=== PATIENT | female | born 1960 | race Caucasian/White ===

== ENCOUNTER 2024-05-14 10:05 | Outpatient (RCR) | payer MEDICARE, SELFPAY ==
[2024-05-14 11:12] LABS: Basophils % (Auto) 1 % (0-2.5); Eosinophils # (Auto) 0.1 Thou/mm3 (0.0-0.5); Eosinophils % (Auto) 2 % (0-10); Hematocrit 41.6 % (36.0-46.0); Hemoglobin 13.9 g/dL (12.0-16.0); Immature Granulocytes % (Auto) 0 % (0-0); Immature Granulocytes Auto 0.02 Thou/mm3 (0.00-0.00); Lymphocytes # (Auto) 1.2 Thou/mm3 (1.0-4.8); Lymphocytes % (Auto) 22 % (10-50); Mean Corpuscular HGB Conc 33.4 g/dl (31.0-37.0); Mean Corpuscular Hemoglobin 30.7 pg (25.0-35.0); Mean Corpuscular Volume 92 fL (80-100); Monocytes # (Auto) 0.5 Thou/mm3 (0.0-0.8); Monocytes % (Auto) 9 % (0-12); Neutrophils # (Auto) 3.8 Thou/mm3 (1.8-7.7); Neutrophils % (Auto) 66 % (37-80); Nucleated Red Blood Cell % 0 /100 WBC (0); Platelet Count 227 Thou/mm3 (140-440); RDW Standard Deviation 45.8 fL (36.4-46.3); Red Blood Count 4.53 Miln/mm3 (4.00-5.20); White Blood Count 5.7 Thou/mm3 (3.6-11.0)
[2024-05-14 11:33] LABS: Carcinoembryonic Antigen 2.2 ng/mL (0.0-5.0)
[2024-05-14 11:54] LABS: Alanine Aminotransferase 14 U/L (10-49); Albumin, Serum 4.3 gm/dL (3.4-4.8); Albumin/Globulin Ratio 1.8 (1.2-2.2); Alkaline Phosphatase 99 U/L (46-116); Anion Gap 7 (7-16); BUN/Creatinine Ratio 15 Ratio (12-20); Bilirubin,Total 0.3 mg/dL (0.3-1.2); Blood Urea Nitrogen 15 mg/dL (9-23); Carbon Dioxide 24.6 mMol/L (20.0-31.0); Chloride 110 mMol/L (98-107); Globulin 2.4 gm/dL (2.3-3.5); Glucose 109 mg/dL (74-106); Osmolality,Calculated 284 (275-295); Potassium 3.6 mMol/L (3.4-5.1); Sodium 142 mMol/L (136-145); Total Protein 6.7 gm/dL (5.7-8.2); eGFR > 60 See Note
[2024-05-14 12:49] LABS: Aspartate Amino Transferase < 8 U/L (0-34)
== END 2024-06-11 23:59 | disposition home or self-care (01) ==
LOC: SCTC 10:05
PROVIDERS: PCP Internal Medicine; Referring Provider Internal Medicine; Visit Provider Internal Medicine Hematology & Oncology
DX: C20 Malignant neoplasm of rectum (principal)
CPT/HCPCS: 36591; 80053; 82378; 85025; A4216; J1642

== ENCOUNTER 2024-07-28 14:52 | Outpatient (RCR) | payer MEDICARE, SELFPAY ==
[2024-07-27 15:33] LABS: Basophils % (Auto) 1 % (0-2.5); Eosinophils # (Auto) 0.1 Thou/mm3 (0.0-0.5); Eosinophils % (Auto) 1 % (0-10); Hematocrit 42.2 % (36.0-46.0); Hemoglobin 14.3 g/dL (12.0-16.0); Immature Granulocytes % (Auto) 0 % (0-0); Immature Granulocytes Auto 0.02 Thou/mm3 (0.00-0.00); Lymphocytes # (Auto) 1.5 Thou/mm3 (1.0-4.8); Lymphocytes % (Auto) 25 % (10-50); Mean Corpuscular HGB Conc 33.9 g/dl (31.0-37.0); Mean Corpuscular Hemoglobin 30.5 pg (25.0-35.0); Mean Corpuscular Volume 90 fL (80-100); Monocytes # (Auto) 0.5 Thou/mm3 (0.0-0.8); Monocytes % (Auto) 8 % (0-12); Neutrophils # (Auto) 4.1 Thou/mm3 (1.8-7.7); Neutrophils % (Auto) 66 % (37-80); Nucleated Red Blood Cell % 0 /100 WBC (0); Platelet Count 205 Thou/mm3 (140-440); Red Blood Count 4.69 Miln/mm3 (4.00-5.20); White Blood Count 6.2 Thou/mm3 (3.6-11.0)
[2024-07-27 15:57] LABS: Alanine Aminotransferase 24 U/L (10-49); Albumin, Serum 4.2 gm/dL (3.4-4.8); Albumin/Globulin Ratio 1.6 (1.2-2.2); Alkaline Phosphatase 96 U/L (46-116); Anion Gap 6 (7-16); Aspartate Amino Transferase 22 U/L (0-34); BUN/Creatinine Ratio 12 Ratio (12-20); Bilirubin,Total 0.6 mg/dL (0.3-1.2); Blood Urea Nitrogen 12 mg/dL (9-23); Calcium 8.9 mg/dL (8.3-10.6); Calcium (Corrected) 8.9 mg/dL (8.5-10.1); Carbon Dioxide 27.6 mMol/L (20.0-31.0); Chloride 105 mMol/L (98-107); Globulin 2.6 gm/dL (2.3-3.5); Glucose 109 mg/dL (74-106); Osmolality,Calculated 278 (275-295); Potassium 3.9 mMol/L (3.4-5.1); Sodium 139 mMol/L (136-145); Total Protein 6.8 gm/dL (5.7-8.2); eGFR > 60 See Note
[2024-07-27 15:59] LABS: Carcinoembryonic Antigen 2.1 ng/mL (0.0-5.0)
--- NOTE | 2024-08-16 00:59 | CTCFLWUP_ITS ---
Patient: SIMONE JEFFRIES : 1960 Page 5 of 7 FOLLOW UP NOTE DATE OF SERVICE: 07/28/2024 NAME: SIMONE JEFFRIES ACCOUNT: [id number] : 1960 AGE: 64 INTERVAL HISTORY: No new complaints ONCOLOGY HISTORY: DIAGNOSIS: Stage IIb rectal adenocarcinoma (09/04/2017). S/p APR (09/04/2017) Post chemoradiation (12/15/2017 - 01/22/2018) S/p 8 doses of modified FOLFOX 6 (03/04/2018 - 06/23/2018) Ms. Jeffries smokes 3 packs of cigarettes per day. Has been smoking for a long time. REASON FOR TODAY?S VISIT: This is office follow-up visit. Ms. Jeffries is here at [facility]. She is clinically doing well. Denies any new complaints. Denies any cough, chest pain, abdominal pain or leg cramps. She denies any neck pain. Since last visit she had CT scan of the neck as well as ultrasound of the neck. The results are documented below. She has good appetite and good energy levels. Continues to smoke cigarettes in spite of multiple recommendation. Smoking. Malignant neoplasm of rectum [ICD10] C20 DATE OF DIAGNOSIS: STAGE/TNM: TREATMENT HISTORY: Care?Plan Start?Date Cycle Day Intent 5FU?225?mg/m*2/day 12/15/2017 1 7 Curative?(adjuvant) Iqazuj-hUITYGA-5?-?5FU?400?+?2400?CIV,?LVR?400,?OXALIplat?85 03/04/2018 2 14 Curative?(adjuvant) HISTORY OF PRESENT ILLNESS: Simone Jeffries is a 64-year-old female with following history. 08/07/2017: Colonoscopy was done due to a history of for rectal bleeding. A mass was found in the rectum and biopsies were taken. Pathology showed moderately differentiated adenocarcinoma. 09/04/2017: Dr. Melvin West performed abdominal peritoneal resection with permanent colostomy, bilateral salpingo- oophorectomy, exclusion of pelvis with mesh, posterior partial vaginectomy and incidental appendectomy. Surgical pathology specimen showed a 8 x 7.5 x 2 cm moderately differentiated adenocarcinoma located in the distal rectum with tumor penetrating the muscularis propria and involved the perimuscular fibrous tissue and the outer vaginal wall. No lymphovascular or perineural invasion was identified. 19 lymph nodes were negative for metastatic disease. It was staged as a PT 4, PN 0 disease. 11/25/2017: CT scan of the chest with IV contrast was done which showed 3 mm noncalcified pulmonary nodule in the right lower lobe as well as a 5 mm noncalcified pulmonary nodule in the superior segment of the right lower lobe. 12/15/2017-01/22/2018: Patient received 5040 cGy of radiation therapy along with 5- FU as a radiosensitizing agent. 03/04/2018? 06/23/2018: Patient received 8 doses of modified FOLFOX. 09/21/2018: Patient had CT scan of the chest abdomen pelvis with contrast which showedStable 5 mm, 3 mm pulmonary nodules right lower lobe compared to CT chest study November 25, 2017. No interval mediastinal adenopathy. No interval pulmonary nodules. No interval hepatic lesions. Presumed postoperative change in the rectal region Presacral ill-defined density which could represent scar formation although recurrent tumor cannot be excluded. 10/23/2018: PET CT scan?The right lower lobe pulmonary nodules, 5 mm, [address] chest September 21, 2018 are not appreciated on the current lower resolution CT chest study No new pulmonary nodules No interval metastatic disease 11/02/2019: AST 147, ALT 227. CEA 1.0. 01/24/2020: Patient was seen in the emergency room because of diffuse abdominal pain. 01/24/2020: CT scan of the abdomen and pelvis with IV contrast? 01/24/2020: AST 35, ALT 36, T bili 0.6. 02/07/2020: CT scan of the chest without contrast? 03/16/2020: MRI of the pelvis with and without contrast? 04/24/2020: Ultrasound-guided biopsies of the right and left anal masses? 05/26/2020: PET CT scan? 06/17/2020: MRI of the abdomen with IV contrast? 11/22/2020: Patient had left abdominal wall hernia repaired by Dr. West. 09/24/2022: CEA 1.8. 10/02/2023: PET/CT scan? 10/10/2023: CT scan of the abdomen and pelvis with IV contrast 11/04/2023: CT scan of the neck with IV contrast 11/10/2023: Ultrasound of soft tissue of neck OTHER MEDICAL HISTORY/CONDITIONS: FAMILY HISTORY: SOCIAL HISTORY: MARKET ANALYST HISTORY: MEDICATIONS: 1. escitalopram oxalate - 5 mg 1 tab Every day before sleep 2. Imodium A-D - 2 mg 2 tab Twice a Day 3. losartan - 25 mg 1 tab Daily 4. trazodone - Daily Medications Last Reconciled by Charito Khan MA on 07/28/2024 ALLERGIES: No Known Drug Allergies REVIEW OF SYSTEMS: A complete 14-point review of systems was performed and is negative except as noted in interval history. PHYSICAL EXAMINATION: VITAL SIGNS: Temperature?98, B/P?140/80, Oxygen?Saturation?96% Weight?196?lbs (Change?since?07/27/24:?0?lbs) PAIN: 0 - No pain GENERAL APPEARANCE: Appears well, in no apparent distress, appropriately interactive. HEENT: Normocephalic, no temporal wasting, normal conjunctiva, no scleral icterus, normal hearing, lips without lesions, neck normal range of motion. CARDIOVASCULAR: Not assessed. PULMONARY: Normal respiratory effort, no respiratory distress or use of accessory muscles, speaking in full sentences, no tachypnea. EXTREMITIES: No pedal edema or cyanosis. SKIN: Normal skin appearance. NEUROLOGIC: Alert and oriented x4. PSHYCHIATRIC: Appropriate affect, mood normal, behavior normal, intact thought and speech. LABORATORY DATA: I have personally reviewed and interpreted each of the patient?s relevant lab tests, abnormal findings are below: Date 05/14/24 07/27/24 ??WHITE?BLOOD?COUNT?(Thou/mm3) 5.7 6.2 ??RED?BLOOD?COUNT?(Miln/mm3) 4.53 4.69 ??HEMOGLOBIN?(gm/dl) 13.9 14.3 ??HEMATOCRIT?(%) 41.6 42.2 ??PLATELET?COUNT?(Thou/mm3) 227 205 ??NEUTROPHILS?%,?AUTO?(%) 66 66 ??LYMPH?%,?AUTO?(%) 22 25 ??NEUTROPHILS,?AUTO?(Thou/mm3) 3.8 4.1 ??GLUCOSE,RANDOM?(mg/dL) ? 109?H ??BLOOD?UREA?NITROGEN?(mg/dL) ? 12 ??CREATININE?(mg/dL) ? 1.00 ??SODIUM?(mmol/L) ? 139 ??POTASSIUM?(mmol/L) ? 3.9 ??CHLORIDE?(mmol/L) ? 105 ??CrCl?(CandG)?(ml/min) ? 77.67 ??AST/SGOT?(Unit/L) ? 22 ??ALT/SGPT?(Unit/L) ? 24 ??ALKALINE?PHOSPHATASE?(Unit/L) ? 96 ??BILIRUBIN,?TOTAL?(mg/dL) ? 0.6 ??PROTEIN?TOTAL?(gm/dl) ? 6.8 ??ALBUMIN,?SERUM?(gm/dl) ? 4.2 ??GLOBULIN?(gm/dl) ? 2.6 ??ALBUMIN/GLOBULIN?RATIO ? 1.6 ??CALCIUM,?SERUM?(mg/dL) ? 8.9 ??CALCIUM?SERUM?(CORRECTED)?(mg/dL) ? 8.9 ??CEA?(O*)?(ng/ml) ? 2.1 ASSESSMENT/PLAN: Ultrasound of the neck as well as CT scans of the neck did not show any mass lesions. The left-sided neck swelling has subsided. Stage IIb rectal adenocarcinoma (09/04/2017). S/p APR (09/04/2017) Post chemoradiation (12/15/2017 - 01/22/2018) S/p 8 doses of modified FOLFOX 6 (03/04/2018 - 06/23/2018) Peripheral neuropathy better. Patient continues to smoke 1/2 packs of cigarettes per day. CT scan of the neck with contrast as well as ultrasound of the left side of the neck. No evidence of recurrence of her rectal cancer. I will see her back in clinic in 6 months with labs drawn prior to the visit.. ORDERS: Order # Description [id number] Comprehensive Metabolic Panel - 12 + CBC with Auto Diff [id number] Follow Up 3 Months RETURN TO CLINIC: 3 months BILLING AND COMPLIANCE: I reviewed external records from providers outside my specialty as summarized above. I spent a total of 50 minutes on this patient?s care on the day of their visit excluding time spent related to any billed procedures. This time includes time spent with the patient as well as time spent documenting in the medical record, reviewing patients records and tests, obtaining history, placing orders, communicating with other healthcare professionals, counseling the patient, family or caregiver, and/or care coordination for the diagnoses above. Electronically Signed by: Geovani Kahn MD T: 12:57 AM CC: Missy,? PCP: Chico Haley Referring: Chico Haley This document was completed utilizing speech recognition software. Grammatical errors, random word insertions, pronoun errors, and incomplete sentences are an occasional consequence of this system due to software limitations, ambient noise, and hardware issues. Any formal questions or concerns about the content, text or information contained within the body of this dictation should be directly addressed to the provider for clarification.
== END 2024-08-09 23:59 | disposition home or self-care (01) ==
LOC: SCTC 14:52
PROVIDERS: PCP Internal Medicine; Referring Provider Internal Medicine; Visit Provider Internal Medicine Hematology & Oncology
DX: Z08 Encounter for follow-up examination after completed treatment for malignant neoplasm (principal); Z85.048 Personal history of other malignant neoplasm of rectum, rectosigmoid junction, and anus; Z92.3 Personal history of irradiation; Z92.21 Personal history of antineoplastic chemotherapy; F17.210 Nicotine dependence, cigarettes, uncomplicated; G62.9 Polyneuropathy, unspecified
CPT/HCPCS: 36591; 80053; 82378; 85025; 99212; A4216; J1642; G0463

== ENCOUNTER 2024-09-09 08:26 | Outpatient (RCR) | payer MEDICARE, BC, SELFPAY | END 2024-10-09 23:59 | disposition home or self-care (01) | LOC: SCTC 08:26 | PROVIDERS: PCP Internal Medicine; Referring Provider Internal Medicine; Visit Provider Internal Medicine Hematology & Oncology | DX: Z08 Encounter for follow-up examination after completed treatment for malignant neoplasm (principal); Z85.048 Personal history of other malignant neoplasm of rectum, rectosigmoid junction, and anus; F17.210 Nicotine dependence, cigarettes, uncomplicated; Z92.3 Personal history of irradiation; Z92.21 Personal history of antineoplastic chemotherapy | CPT/HCPCS: 36591; A4216; J1642 ==

== ENCOUNTER 2024-10-27 10:54 | Outpatient (RCR) | payer MEDICARE, BC, SELFPAY ==
[2024-10-26 11:44] LABS: Basophils # (Auto) 0.1 Thou/mm3 (0.0-0.2); Basophils % (Auto) 1 % (0-2.5); Eosinophils # (Auto) 0.1 Thou/mm3 (0.0-0.5); Eosinophils % (Auto) 2 % (0-10); Hematocrit 39.8 % (36.0-46.0); Hemoglobin 13.7 g/dL (12.0-16.0); Immature Granulocytes % (Auto) 0 % (0-0); Immature Granulocytes Auto 0.02 Thou/mm3 (0.00-0.00); Lymphocytes # (Auto) 1.3 Thou/mm3 (1.0-4.8); Lymphocytes % (Auto) 23 % (10-50); Mean Corpuscular HGB Conc 34.4 g/dl (31.0-37.0); Mean Corpuscular Hemoglobin 31.7 pg (25.0-35.0); Mean Corpuscular Volume 92 fL (80-100); Monocytes # (Auto) 0.5 Thou/mm3 (0.0-0.8); Monocytes % (Auto) 9 % (0-12); Neutrophils # (Auto) 3.7 Thou/mm3 (1.8-7.7); Neutrophils % (Auto) 65 % (37-80); Nucleated Red Blood Cell % 0 /100 WBC (0); Platelet Count 194 Thou/mm3 (140-440); RDW Standard Deviation 49.1 fL (36.4-46.3); Red Blood Count 4.32 Miln/mm3 (4.00-5.20); White Blood Count 5.7 Thou/mm3 (3.6-11.0)
[2024-10-26 12:04] LABS: Alanine Aminotransferase 19 U/L (10-49); Albumin, Serum 3.9 gm/dL (3.4-4.8); Albumin/Globulin Ratio 1.7 (1.2-2.2); Alkaline Phosphatase 77 U/L (46-116); Anion Gap 7 (7-16); Aspartate Amino Transferase 22 U/L (0-34); BUN/Creatinine Ratio 13 Ratio (12-20); Bilirubin,Total 0.3 mg/dL (0.3-1.2); Blood Urea Nitrogen 13 mg/dL (9-23); Calcium 8.8 mg/dL (8.3-10.6); Calcium (Corrected) 8.9 mg/dL (8.5-10.1); Carbon Dioxide 26.6 mMol/L (20.0-31.0); Chloride 108 mMol/L (98-107); Globulin 2.3 gm/dL (2.3-3.5); Glucose 96 mg/dL (74-106); Osmolality,Calculated 283 (275-295); Potassium 4.3 mMol/L (3.4-5.1); Sodium 142 mMol/L (136-145); Total Protein 6.2 gm/dL (5.7-8.2); eGFR > 60 See Note
[2024-10-26 12:06] LABS: Carcinoembryonic Antigen 2.1 ng/mL (0.0-5.0)
--- NOTE | 2024-11-01 01:46 | CTCFLWUP_ITS ---
Patient: SIMONE JEFFRIES : 1960 Page 5 of 7 FOLLOW UP NOTE DATE OF SERVICE: 10/27/2024 NAME: SIMONE JEFFRIES ACCOUNT: [id number] : 1960 AGE: 64 INTERVAL HISTORY: Simone, a female patient with history of colon cancer concern, presented for genetic test follow-up and evaluation of a scalp bump. She smokes 2 packs daily and worries about lung cancer. Examination revealed a small scalp lesion with dry skin and dandruff. [facility] genetic testing for colon cancer was negative. Management included ordering a chest CT scan for lung cancer screening, smoking cessation counseling, and recommendations for scalp care including moisturizing and using Head and Shoulders shampoo. ONCOLOGY HISTORY: DIAGNOSIS: Stage IIb rectal adenocarcinoma (09/04/2017). S/p APR (09/04/2017) Post chemoradiation (12/15/2017 - 01/22/2018) S/p 8 doses of modified FOLFOX 6 (03/04/2018 - 06/23/2018) Ms. Jeffries smokes 3 packs of cigarettes per day. Has been smoking for a long time. REASON FOR TODAY?S VISIT: This is office follow-up visit. Ms. Jeffries is here at [facility]. She is clinically doing well. Denies any new complaints. Denies any cough, chest pain, abdominal pain or leg cramps. She denies any neck pain. Since last visit she had CT scan of the neck as well as ultrasound of the neck. The results are documented below. She has good appetite and good energy levels. Continues to smoke cigarettes in spite of multiple recommendation. Smoking. Malignant neoplasm of rectum [ICD10] C20 DATE OF DIAGNOSIS: 08/07/2017 STAGE/TNM: Stage IIb T4 N0 M0 Moderately differentiated adenocarcinoma of the distal rectum TREATMENT HISTORY: Care?Plan Start?Date Cycle Day Intent 5FU?225?mg/m*2/day 12/15/2017 1 7 Curative?(adjuvant) Cnkowd-cMNXXYX-5?-?5FU?400?+?2400?CIV,?LVR?400,?OXALIplat?85 03/04/2018 2 14 Curative?(adjuvant) HISTORY OF PRESENT ILLNESS: Simone Jeffries is a 64-year-old female with following history. 08/07/2017: Colonoscopy was done due to a history of for rectal bleeding. A mass was found in the rectum and biopsies were taken. Pathology showed moderately differentiated adenocarcinoma. 09/04/2017: Dr. Melvin West performed abdominal peritoneal resection with permanent colostomy, bilateral salpingo- oophorectomy, exclusion of pelvis with mesh, posterior partial vaginectomy and incidental appendectomy. Surgical pathology specimen showed a 8 x 7.5 x 2 cm moderately differentiated adenocarcinoma located in the distal rectum with tumor penetrating the muscularis propria and involved the perimuscular fibrous tissue and the outer vaginal wall. No lymphovascular or perineural invasion was identified. 19 lymph nodes were negative for metastatic disease. It was staged as a PT 4, PN 0 disease. 11/25/2017: CT scan of the chest with IV contrast was done which showed 3 mm noncalcified pulmonary nodule in the right lower lobe as well as a 5 mm noncalcified pulmonary nodule in the superior segment of the right lower lobe. 12/15/2017-01/22/2018: Patient received 5040 cGy of radiation therapy along with 5- FU as a radiosensitizing agent. 03/04/2018? 06/23/2018: Patient received 8 doses of modified FOLFOX. 09/21/2018: Patient had CT scan of the chest abdomen pelvis with contrast which showedStable 5 mm, 3 mm pulmonary nodules right lower lobe compared to CT chest study November 25, 2017. No interval mediastinal adenopathy. No interval pulmonary nodules. No interval hepatic lesions. Presumed postoperative change in the rectal region Presacral ill-defined density which could represent scar formation although recurrent tumor cannot be excluded. 10/23/2018: PET CT scan?The right lower lobe pulmonary nodules, 5 mm, [address] chest September 21, 2018 are not appreciated on the current lower resolution CT chest study No new pulmonary nodules No interval metastatic disease 11/02/2019: AST 147, ALT 227. CEA 1.0. 01/24/2020: Patient was seen in the emergency room because of diffuse abdominal pain. 01/24/2020: CT scan of the abdomen and pelvis with IV contrast? 01/24/2020: AST 35, ALT 36, T bili 0.6. 02/07/2020: CT scan of the chest without contrast? 03/16/2020: MRI of the pelvis with and without contrast? 04/24/2020: Ultrasound-guided biopsies of the right and left anal masses? 05/26/2020: PET CT scan? 06/17/2020: MRI of the abdomen with IV contrast? 11/22/2020: Patient had left abdominal wall hernia repaired by Dr. West. 09/24/2022: CEA 1.8. 10/02/2023: PET/CT scan? 10/10/2023: CT scan of the abdomen and pelvis with IV contrast 11/04/2023: CT scan of the neck with IV contrast 11/10/2023: Ultrasound of soft tissue of neck OTHER MEDICAL HISTORY/CONDITIONS: FAMILY HISTORY: SOCIAL HISTORY: IT TRAINEE HISTORY: MEDICATIONS: 1. escitalopram oxalate - 5 mg 1 tab Every day before sleep 2. Imodium A-D - 2 mg 2 tab Twice a Day 3. losartan - 25 mg 1 tab Daily 4. trazodone - Daily Medications Last Reconciled by Rita Clemente MA on 10/27/2024 ALLERGIES: No Known Drug Allergies REVIEW OF SYSTEMS: A complete 14-point review of systems was performed and is negative except as noted in interval history. PHYSICAL EXAMINATION: VITAL SIGNS: Temperature?98.6, B/P?180/106, Oxygen?Saturation?96% PAIN: 0 - No pain ECOG Performance Status: 0 - Asymptomatic and fully active GENERAL APPEARANCE: Appears well, in no apparent distress, appropriately interactive. HEENT: Normocephalic, no temporal wasting, normal conjunctiva, no scleral icterus, normal hearing, lips without lesions, neck normal range of motion. CARDIOVASCULAR: Not assessed. PULMONARY: Normal respiratory effort, no respiratory distress or use of accessory muscles, speaking in full sentences, no tachypnea. EXTREMITIES: No pedal edema or cyanosis. SKIN: Normal skin appearance. NEUROLOGIC: Alert and oriented x4. PSHYCHIATRIC: Appropriate affect, mood normal, behavior normal, intact thought and speech. LABORATORY DATA: I have personally reviewed and interpreted each of the patient?s relevant lab tests, abnormal findings are below: Date 07/27/24 10/26/24 ??WHITE?BLOOD?COUNT?(Thou/mm3) 6.2 5.7 ??RED?BLOOD?COUNT?(Miln/mm3) 4.69 4.32 ??HEMOGLOBIN?(gm/dl) 14.3 13.7 ??HEMATOCRIT?(%) 42.2 39.8 ??PLATELET?COUNT?(Thou/mm3) 205 194 ??NEUTROPHILS?%,?AUTO?(%) 66 65 ??LYMPH?%,?AUTO?(%) 25 23 ??NEUTROPHILS,?AUTO?(Thou/mm3) 4.1 3.7 ??GLUCOSE,RANDOM?(mg/dL) ? 96 ??BLOOD?UREA?NITROGEN?(mg/dL) ? 13 ??CREATININE?(mg/dL) ? 1.00 ??SODIUM?(mmol/L) ? 142 ??POTASSIUM?(mmol/L) ? 4.3 ??CHLORIDE?(mmol/L) ? 108?H ??CrCl?(CandG)?(ml/min) ? 80.52 ??AST/SGOT?(Unit/L) ? 22 ??ALT/SGPT?(Unit/L) ? 19 ??ALKALINE?PHOSPHATASE?(Unit/L) ? 77 ??BILIRUBIN,?TOTAL?(mg/dL) ? 0.3 ??PROTEIN?TOTAL?(gm/dl) ? 6.2 ??ALBUMIN,?SERUM?(gm/dl) ? 3.9 ??GLOBULIN?(gm/dl) ? 2.3 ??ALBUMIN/GLOBULIN?RATIO ? 1.7 ??CALCIUM,?SERUM?(mg/dL) ? 8.8 ??CALCIUM?SERUM?(CORRECTED)?(mg/dL) ? 8.9 ??CEA?(O*)?(ng/ml) ? 2.1 ASSESSMENT/PLAN: Ultrasound of the neck as well as CT scans of the neck did not show any mass lesions. The left-sided neck swelling has subsided. Stage IIb rectal adenocarcinoma (09/04/2017). S/p APR (09/04/2017) Post chemoradiation (12/15/2017 - 01/22/2018) S/p 8 doses of modified FOLFOX 6 (03/04/2018 - 06/23/2018) Peripheral neuropathy better. CT scan of the neck with contrast as well as ultrasound of the left side of the neck. No evidence of recurrence of her rectal cancer. I will see her back in clinic in 6 months with labs drawn prior to the visit.. Mervin Conn, female patient with history of colon cancer concern, presents for follow-up of genetic testing and evaluation of a scalp lesion. Colon Cancer Screening Assessment: Patient underwent [employer] genetic testing for colon cancer, which returned negative results. This indicates no current evidence of colon cancer and no genetic predisposition detected. Plan: - Colonoscopy as per GI - Reassess in 6 months Tobacco Use Disorder Assessment: Patient reports current tobacco use of 2 packs per day, reduced from previous consumption. This level of smoking puts the patient at high risk for various cancers, particularly lung cancer, and other smoking-related health issues. Plan: - Order CT scan of the chest to screen for lung cancer - Strongly advise smoking cessation - Educate patient on increased risk of lung cancer and other health issues related to smoking Scalp Lesion Assessment: Patient reports a small bump on the top of the head. On examination, a small lesion is palpated within the skin. The scalp appears dry with evidence of dandruff. The lesion is likely related to dry skin and seborrheic dermatitis rather than a concerning growth. Plan: - Continue use of anti-dandruff shampoo - Monitor lesion and follow up with the primary care ORDERS: Order # Description RETURN TO CLINIC: BILLING AND COMPLIANCE: I reviewed external records from providers outside my specialty as summarized above. I spent a total of 50 minutes on this patient?s care on the day of their visit excluding time spent related to any billed procedures. This time includes time spent with the patient as well as time spent documenting in the medical record, reviewing patients records and tests, obtaining history, placing orders, communicating with other healthcare professionals, counseling the patient, family or caregiver, and/or care coordination for the diagnoses above. Electronically Signed by: {Object.Sanct_ID*PnP.NameFL@M}, {Object.Sanct_ID*PnP.Suffix@U} D: {Object.Sanct_Date} T: {Object.Sanct_Time} CC: Brijesh?Mao,? PCP: Chico Haley Referring: Chico Haley This document was completed utilizing speech recognition software. Grammatical errors, random word insertions, pronoun errors, and incomplete sentences are an occasional consequence of this system due to software limitations, ambient noise, and hardware issues. Any formal questions or concerns about the content, text or information contained within the body of this dictation should be directly addressed to the provider for clarification.
== END 2024-11-08 23:59 | disposition home or self-care (01) ==
LOC: SCTC 10:54
PROVIDERS: PCP Internal Medicine; Referring Provider Internal Medicine; Visit Provider Internal Medicine Hematology & Oncology
DX: Z08 Encounter for follow-up examination after completed treatment for malignant neoplasm (principal); Z85.038 Personal history of other malignant neoplasm of large intestine; F17.210 Nicotine dependence, cigarettes, uncomplicated; Z71.6 Tobacco abuse counseling; L21.0 Seborrhea capitis
CPT/HCPCS: 36591; 80053; 82378; 85025; 99212; A4216; J1642; G0463

== ENCOUNTER → 2024-12-01 | Outpatient (CLI) | payer MEDICARE, BC, SELFPAY ==
[2024-12-01 10:45] LABS: Basophils # (Auto) 0.0 Thou/mm3 (0.0-0.2); Basophils % (Auto) 1 % (0-2.5); Eosinophils # (Auto) 0.1 Thou/mm3 (0.0-0.5); Eosinophils % (Auto) 2 % (0-10); Hematocrit 43.0 % (36.0-46.0); Hemoglobin 14.1 g/dL (12.0-16.0); Immature Granulocytes Auto 0.03 Thou/mm3 (0.00-0.00); Lymphocytes # (Auto) 1.5 Thou/mm3 (1.0-4.8); Lymphocytes % (Auto) 25 % (10-50); Mean Corpuscular HGB Conc 32.8 g/dl (31.0-37.0); Mean Corpuscular Hemoglobin 31.7 pg (25.0-35.0); Mean Corpuscular Volume 97 fL (80-100); Monocytes # (Auto) 0.6 Thou/mm3 (0.0-0.8); Monocytes % (Auto) 10 % (0-12); Neutrophils # (Auto) 3.5 Thou/mm3 (1.8-7.7); Neutrophils % (Auto) 61 % (37-80); Nucleated Red Blood Cell # 0.00 Thou/mm3 (0.00-0.00); Nucleated Red Blood Cell % 0 /100 WBC (0); Platelet Count 202 Thou/mm3 (140-440); RDW Standard Deviation 48.4 fL (36.4-46.3); Red Blood Count 4.45 Miln/mm3 (4.00-5.20); White Blood Count 5.8 Thou/mm3 (3.6-11.0)
[2024-12-01 11:11] LABS: Alanine Aminotransferase 22 U/L (10-49); Albumin, Serum 4.3 gm/dL (3.4-4.8); Albumin/Globulin Ratio 1.6 (1.2-2.2); Alkaline Phosphatase 94 U/L (46-116); Anion Gap 9 (7-16); Aspartate Amino Transferase 24 U/L (0-34); BUN/Creatinine Ratio 13 Ratio (12-20); Bilirubin,Total 0.3 mg/dL (0.3-1.2); Blood Urea Nitrogen 14 mg/dL (9-23); Calcium 8.9 mg/dL (8.3-10.6); Calcium (Corrected) 8.9 mg/dL (8.5-10.1); Carbon Dioxide 26.7 mMol/L (20.0-31.0); Chloride 109 mMol/L (98-107); Creatinine (Component) 1.1 mg/dL (0.6-1.3); Globulin 2.7 gm/dL (2.3-3.5); Glucose 115 mg/dL (74-106); Osmolality,Calculated 290 (275-295); Potassium 4.4 mMol/L (3.4-5.1); Sodium 145 mMol/L (136-145); Total Protein 7.0 gm/dL (5.7-8.2); eGFR 55 See Note
== END | disposition home or self-care (01) ==
LOC: CCTX 09:33 → SCTO 09:35
PROVIDERS: Referring Provider Internal Medicine Hematology & Oncology; Visit Provider Internal Medicine Hematology & Oncology
DX: C20 Malignant neoplasm of rectum (principal)
CPT/HCPCS: 36415; 80053; 85025

== ENCOUNTER 2024-12-14 08:24 | Outpatient (RCR) | payer MEDICARE, BC, SELFPAY | END 2025-01-09 23:59 | disposition home or self-care (01) | LOC: SCTC 08:24 | PROVIDERS: PCP Internal Medicine; Referring Provider Internal Medicine Hematology & Oncology; Visit Provider Internal Medicine Hematology & Oncology | DX: Z08 Encounter for follow-up examination after completed treatment for malignant neoplasm (principal); Z85.048 Personal history of other malignant neoplasm of rectum, rectosigmoid junction, and anus; Z92.3 Personal history of irradiation; Z92.21 Personal history of antineoplastic chemotherapy | CPT/HCPCS: 36591; A4216; J1642 ==